=== PATIENT | male | born 1990 | race Caucasian/White ===

== ENCOUNTER 2016-08-27 07:58 | Emergency (ER) | payer OTHER ==
[~2016-08-27] VITALS: Ht 188 cm; Wt 60.2 kg
[~2016-08-27 07:58] MED LIST: CATAPRES0.1 MG PO; Keflex PO; NAPROSYN500 MG PO; NOHOMEMEDS; PREDNISONE20 MG PO; STIMATE; TESSALON PERLE100 MG PO; TRAZODONE HCL50 MG PO; VALIUM5 MG PO; VENTOLIN HFA18 GM IH; Vicodin,Lortab 5/500 PO
[2016-08-27] MEDS ORDERED: ZOFRAN4 MG PO (08:14)
[2016-08-27] MEDS ORDERED: XANAX0.25 MG PO (08:14)
[2016-08-27 09:51] LABS: EOSINOPHIL (%) 0.2 % (0-5); HEMATOCRIT 43.1 % (38.0-50.0); IMMATURE GRANULOCYTE (%) 0.2 % (0.0-0.7); IMMATURE GRANULOCYTE COUNT 0.2 K/uL; LYMPHOCYTE COUNT 2.1 K/uL (1.0-2.8); MCH 31.2 PG (29.0-34.0); MCHC 35.5 G/DL (30.0-36.0); MEAN PLAT.VOLUME 10.9 uM^3 (9.0-12.4); MONOCYTE (%) 6.8 % (3-12); MONOCYTE COUNT 0.7 K/uL (0-0.8); NEUTROPHIL COUNT 7.8 K/uL (1.8-6.4); PLATELET COUNT 193 K/uL (156-360); RBC DIS.WIDTH-CV 13.3 % (11.8-14.6); WHITE BLOOD COUNT 10.7 K/uL (4.1-10.2)
[2016-08-27 09:55] LABS: ADD MIUA? YES; BILIRUBIN SMALL; BLOOD NEGATIVE; COLOR DK YELLOW ((YELLOW)); GLUCOSE (STRIP) NEGATIVE; KETONES TRACE; LEUKOCYTES TRACE; NITRITE NEGATIVE; PROTEIN (STRIP) 30; SPECIFIC GRAVITY 1.035 (1.000-1.030)
[2016-08-27 10:04] LABS: AMPHETAMINE NEGATIVE (500 ng/mL); BARBITURATES NEGATIVE (200 ng/mL); BENZODIAZEPINES PRESUMPTIVE POSITIVE (150 ng/mL); COCAINE NEGATIVE (150 ng/mL); INTERNAL CONTROLS VALID? YES; METHADONE PRESUMPTIVE POSITIVE (200 ng/mL); METHAMPHETAMINE NEGATIVE (500 ng/mL); OPIATES (MORPHINE) NEGATIVE (100 ng/mL); OXYCODONE NEGATIVE (100 ng/mL); PHENCYCLIDINE NEGATIVE (25 ng/mL); PROPOXYPHENE NEGATIVE (300 ng/mL); THC CANNABINOIDS PRESUMPTIVE POSITIVE (50 ng/mL); TRICYCLIC ANTIDEPRESSANTS NEGATIVE (300 ng/mL)
[2016-08-27 10:05] LABS: ADD MEDTOX COMMENT Y
[2016-08-27 10:06] LABS: CHLORIDE 104 mEq/L (99-109); POTASSIUM 3.4 mEq/L (3.7-5.4); SODIUM 139 mEq/L (136-147)
[2016-08-27 10:09] LABS: GLUCOSE 96 mg/dL (70-99)
[2016-08-27 10:09] LABS: MUCUS 3+
[2016-08-27 10:10] LABS: AMORPHOUS URATES CRYSTALS 3+; BACTERIA NONE SEEN; CASTS NONE SEEN /LPF; CRYSTALS PRESENT; EPITHELIAL CELLS NONE SEEN; RED BLOOD CELLS NONE SEEN /HPF (0-5); UCUL ADDED? NO; WHITE BLOOD CELLS 0-5 /HPF (0-5)
[2016-08-27 10:10] LABS: ANION GAP 10 MEQ/L (2-14); TOTAL BILIRUBIN 1.8 mg/dL (0.0-1.0)
[2016-08-27 10:11] LABS: SERUM ETHYL ALCOHOL < 10 mg/dL
[2016-08-27 10:12] LABS: GFR ESTIMATE (CALCULATED) > 59 mL/min/
[2016-08-27 10:13] LABS: ALKALINE PHOSPHATASE 120 IU/L (3-129)
[2016-08-27 10:14] LABS: UREA NITROGEN (BUN) 9 mg/dL (9-23)
[2016-08-27 10:16] LABS: SALICYLATE < 5.0 MG/DL (15-30)
[2016-08-27 11:21] LABS: BENZODIAZEPINES, URINE SCREEN POSITIVE (200 ng/mL)
[2016-08-27 12:08] VITALS: BP 134/99
== END 2016-08-27 12:08 | disposition home or self-care (01) ==
LOC: EME 07:58
PROVIDERS: Physician Assistant
DX: F41.1 Generalized anxiety disorder (principal); A74.9 Chlamydial infection, unspecified; E05.90 Thyrotoxicosis, unspecified without thyrotoxic crisis or storm; F11.20 Opioid dependence, uncomplicated; F12.20 Cannabis dependence, uncomplicated; F17.200 Nicotine dependence, unspecified, uncomplicated
CPT/HCPCS: 80053; 81003; 84439; 84443; 84999; 85025; 90839; 99281; 99283; G0480

== ENCOUNTER 2017-04-20 23:32 | Emergency (ER) | payer OTHER ==
[~2017-04-20] VITALS: Ht 188 cm; Wt 59.3 kg
[~2017-04-20 23:32] MED LIST changes: +XANAX0.25 MG PO; +ZOFRAN4 MG PO
[2017-04-21 02:08] VITALS: BP 137/94
== END 2017-04-21 02:13 | disposition home or self-care (01) ==
LOC: EME 23:32
DX: S01.81XA Laceration without foreign body of other part of head, initial encounter (principal); Z23 Encounter for immunization; W01.198A Fall on same level from slipping, tripping and stumbling with subsequent striking against other object, initial encounter
CPT/HCPCS: 99281; 99283